=== PATIENT | male | born 1960 | race Caucasian/White ===

== ENCOUNTER → 2021-03-31 | Outpatient (CLI) | payer MEDICARE ==
[2021-03-31 20:08] LABS: Basophils # (A) 0.04 X 10*3/uL (0.00-0.10); Basophils % (A) 0.4 %; Eosinophils # (A) 0.04 X 10*3/uL (0.04-0.35); Eosinophils % (A) 0.4 %; HGB 9.5 g/dL (13.0-17.0); Lymphocytes # (A) 3.83 X 10*3/uL (0.90-5.00); Lymphocytes % (A) 38.8 %; MCH 31.3 pg (27.0-32.0); MCHC 31.7 g/dL (32.0-37.0); MCV 98.7 fL (80.0-97.0); Monocytes # (A) 1.54 X 10*3/uL (0.20-1.00); Monocytes % (A) 15.6 %; Neutrophils # (A) 4.24 X 10*3/uL (1.80-7.70); Platelet Count 89 X 10*3/uL (140-440); RBC 3.04 X 10*6/uL (4.40-5.60); RDW 15.3 % (11.5-14.5); WBC 9.87 X 10*3/uL (4.50-10.00)
[2021-03-31 21:54] LABS: African American GFR (CKD) 93.7 (60.0-200.0); Albumin 3.2 g/dL (3.8-4.9); Anion Gap 9.9 mmol/L (10.00-18.00); BUN/Creat Ratio 12.5 Ratio (12.00-20.00); Blood Urea Nitrogen 12.5 mg/dL (9.0-27.0); Calcium 8.5 mg/dL (8.7-10.3); Carbon Dioxide 18.1 mmol/L (20.0-27.5); Non-African American GFR(CKD) 80.9 (60.0-200.0); Potassium 4.4 mmol/L (3.5-5.5); Total Bilirubin 2.3 mg/dL (0.30-1.20)
[2021-04-01 14:14] LABS: Total Protein 14.9 g/dL (6.2-8.2)
== END | disposition home or self-care (01) ==
LOC: LABWHC1 12:28
PROVIDERS: ATTEND Surgery Plastic and Reconstructive Surgery
DX: K40.90 Unilateral inguinal hernia, without obstruction or gangrene, not specified as recurrent (principal); I11.9 Hypertensive heart disease without heart failure
CPT/HCPCS: 36415; 80053; 85025; 93005

== ENCOUNTER → 2021-04-22 | Outpatient (CLI) | payer MEDICARE ==
--- NOTE | 2021-04-22 12:29 | CT ---
EXAMINATION TYPE: CT abdomen pelvis w con DATE OF EXAM: 04/22/2021 COMPARISON: None HISTORY: diverticulitis CT DLP: 451.7 mGycm CONTRAST: CT scan of the abdomen and pelvis is performed with Oral Contrast and with IV Contrast, patient injec angela with 100 mL of Isovue 300. FINDINGS: LUNG BASES-: No visible nodule. No infiltrate. LIVER/GB: No calcified gallstones. No space occupying hepatic lesion. Biliary tree is of normal ca liber. PANCREAS: No inflammation. No distinct mass. SPLEEN: No splenic enlargement. No lesion seen. ADRENALS: No nodule. No thickening. KIDNEYS/BLADDER: No hydronephrosis. No nephrolithiasis. No distinct renal mass. Urinary bladder g rossly unremarkable. BOWEL: Normal appendix. Diffuse Wall thickening of the sigmoid colon has the appearance of colitis ra ther than diverticulitis. Correlate clinically. No evidence for abscess or free air. Small bowel is o f normal caliber. GENITAL ORGANS: No gross abnormality. LYMPH NODES: No greater than 1cm abdominal or pelvic lymph nodes are appreciated. AORTA: No significant abnormality. OSSEOUS STRUCTURES: Postoperative changes lumbar spine. OTHER: No significant additional abnormality is seen. IMPRESSION: 1. Diffuse Wall thickening of the sigmoid colon has the appearance of colitis rather than diverticuli tis. Correlate clinically.
== END | disposition home or self-care (01) ==
LOC: RADCTMAIN 10:09
PROVIDERS: ATTEND Surgery Plastic and Reconstructive Surgery
DX: K57.32 Diverticulitis of large intestine without perforation or abscess without bleeding (principal)
CPT/HCPCS: 74177; Q9967

== ENCOUNTER → 2021-09-29 | Outpatient (CLI) | payer MEDICARE ==
--- NOTE | 2021-09-29 15:03 | CT ---
EXAMINATION TYPE: CT angio chest DATE OF EXAM: 09/29/2021 COMPARISON: NONE HISTORY: Shortness of breath CT DLP: 664 mGy.cm. Automated Exposure Control for Dose Reduction was Utilized. TECHNIQUE AND CONTRAST: CTA scan of the thorax is performed with IV Contrast, patient injected with 140 mL of Isovue 370, pul [facility] angiogram protocol. MIP Images are created on an independent workstation and reviewed. FINDINGS: No definite filling defect within the pulmonary trunk, main pulmonary arteries, lobar and segmental b ranches to suggest pulmonary embolism. Subsegmental branches are suboptimally assessed. The pulmonary trunk measures 2.5 cm. Scattered arterial atherosclerotic calcifications. No gross cardiomegaly. Mild nonspecific fibrotic changes and groundglass opacities seen in the lung bases. Recommend correla tion with pulmonary function tests. 5 mm nodule is seen at the lateral aspect of the left lower lobe, pleural-based, for follow-up in 12 months if high risk patient. Patent trachea and main bronchi. No pleural or pericardial effusion. No pathologically enlarged lymph nodes in the chest. Unremarkable upper abdomen. No aggressive bone lesion. IMPRESSION: No major or central pulmonary embolism. Incidental findings and recommendations as described above.
== END | disposition home or self-care (01) ==
LOC: RADCTMAIN 14:01
PROVIDERS: ATTEND Internal Medicine Critical Care Medicine
DX: R06.02 Shortness of breath (principal)
CPT/HCPCS: 71275; Q9967

== ENCOUNTER → 2022-05-01 | Day surgery (SDC) | payer MEDICARE ==
[2022-04-27 10:34] VITALS: BMI 23.5
[~2022-05-01] MED LIST: SIMETHICONE 40 MG/0.6 ML DROPS 2,000 MG/30 ML BOTTLE PO ONE
[2022-05-01 06:49] VITALS: BP 134/86; PULSE 100; RESP 16; TEMP 97.6
== END ==
LOC: ORWHC2ENDO 06:07
PROVIDERS: ATTEND Internal Medicine Gastroenterology
DX: D50.9 Iron deficiency anemia, unspecified (principal)
CPT/HCPCS: 91110